=== PATIENT | female | born 1965 | race Caucasian/White ===

== ENCOUNTER 2018-12-18 08:25 | Emergency (ER) | payer BC, OTHER ==
[2018-12-18 08:47] VITALS: BP 152/94
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
[2018-12-18] MEDS ORDERED: Sodium Chloride 0.9% 1,000 ML IV ONE (09:26)
[2018-12-18 09:35] LABS: CHLORIDE,CL 103 mmol/L (101-111); SODIUM,NA 137 mmol/L (135-145)
[2018-12-18] MEDS ORDERED: Morphine 2 MG/ML Syringe IVPUSH ONE (10:14)
[2018-12-18] MEDS ORDERED: Ondansetron 4 MG/2 ML SDV IV ONE (10:14)
[2018-12-18] MEDS ORDERED: Insulin Regular, Human 100 Units/ML 3 ML Vial SUBCUT ONE (10:22)
== END 2018-12-18 10:40 | disposition left against medical advice (07) ==
LOC: DL.ED 08:25
DX: S22.080D Wedge compression fracture of T11-T12 vertebra, subsequent encounter for fracture with routine healing (principal); E78.00 Pure hypercholesterolemia, unspecified; I10 Essential (primary) hypertension; E11.9 Type 2 diabetes mellitus without complications; F17.210 Nicotine dependence, cigarettes, uncomplicated; Z88.8 Allergy status to other drugs, medicaments and biological substances; Z79.4 Long term (current) use of insulin; Z79.82 Long term (current) use of aspirin; Z79.899 Other long term (current) drug therapy; W20.8XXD Other cause of strike by thrown, projected or falling object, subsequent encounter
CPT/HCPCS: 36415; 80053; 81001; 82150; 82962; 83690; 85025; 87086; 87088; 87186; 96361; 96374; 96375; 99284; J1815; J2270; J2405; J7030

== ENCOUNTER 2019-09-01 10:55 | Inpatient (IN) | payer BC ==
[2019-09-01] MEDS ORDERED: Docusate Sodium 100 MG Cap PO PRN (11:14)
[2019-09-01] MEDS ORDERED: Albuterol 0.083% 2.5 MG/3 ML Neb Soln NEB PRN (11:14)
[2019-09-01] MEDS ORDERED: Zolpidem 5 MG Tab PO PRN (11:14)
[2019-09-01] MEDS ORDERED: Ondansetron 4 MG Tab.DIS PO PRN (11:14)
--- NOTE | 2019-09-01 11:58 | PCM.HP ---
H&P History of Present Illness - General Date of Service: 09/01/19 Admit Problem/Dx: Admission Diagnosis/Problem Admission Diagnosis/Problem Sepsis with acute pyelonephritis Source of Information: Patient History Limitations: Reports: No Limitations - History of Present Illness Initial Comments - Free Text/Narative: Patient is a 54 y.o. female with a PMH of hypertension and type 2 DM. Patient developed nausea, emesis, bilateral flank pain R>L, chills and fever 3 days ago. Symptoms have progressed and worsened today. She presented to clinic and was found to have a fever with temperature of 101.4, and tachycardia of 117. Blood pressure was soft at 107/67. Labs revealed BG 455, wbc 22.4, Cr 1.4, UA positive for UTI. Onset of Symptoms: Reports: Gradual Symptom Onset Date: 08/29/19 Associated Symptoms: Reports: Weakness - Related Data Allergies/Adverse Reactions: Allergies Allergy/AdvReac Type Severity Reaction Status Date / Time atorvastatin calcium Allergy Cannot Verified 09/01/19 11:43 [From Lipitor] Remember rosuvastatin calcium Allergy Cannot Verified 09/01/19 11:43 [From Crestor] Remember Home Medications: Home Meds Insulin Aspart [NovoLOG] 38 units SUBCUT TID 02/24/15 [History] Metoprolol Succinate [Toprol XL 50mg] 50 mg PO DAILY 02/24/15 [History] Aspirin [Ecotrin EC] 81 mg PO DAILY 04/30/17 [History] Ezetimibe 10 mg PO DAILY 04/30/17 [History] Insulin Detemir [Levemir Flextouch] 130 units SQ DAILY 04/30/17 [History] Pantoprazole [ProTONIX] 40 mg PO DAILY 04/30/17 [History] DULoxetine HCl [Cymbalta] 60 mg PO DAILY 12/18/18 [History] Pravastatin Sodium [Pravachol] 20 mg PO DAILY 09/01/19 [History] Semaglutide [Ozempic] 1 mg SUBCUT WEEKLY 09/01/19 [History] Past Medical History Cardiovascular History: Reports: High Cholesterol, Hypertension 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: Endocrine/Metabolic History: Reports: Diabetes, Type II - Past Surgical History GI Surgical History: Reports: Cholecystectomy Social & Family History - Family History Family Medical History: Noncontributory - Caffeine Use Caffeine Use: Reports: Coffee H&P Review of Systems - Review of Systems: Review Of Systems: See Below General: Reports: Fever, Chills, Malaise, Weakness HEENT: Reports: No Symptoms Pulmonary: Reports: No Symptoms Cardiovascular: Reports: No Symptoms Gastrointestinal: Reports: Nausea, Vomiting Genitourinary: Reports: Dysuria, Frequency, Flank Pain Musculoskeletal: Reports: No Symptoms, Back Pain Skin: Reports: No Symptoms Psychiatric: Reports: No Symptoms Neurological: Reports: No Symptoms Hematologic/Lymphatic: Reports: No Symptoms Immunologic: Reports: No Symptoms Exam - Exam Exam: See Below - Exam General: Alert, Oriented HEENT: PERRLA, Hearing Intact, Mucosa Moist & [place], Nares Patent, Normal Nasal Septum, Posterior Pharynx Clear, Conjunctiva Clear, EOMI, EACs Clear, TMs Clear Neck: Supple, Trachea Midline, 2 Lungs: Clear to Auscultation, Normal Respiratory Effort Cardiovascular: Regular Rate, Regular Rhythm, Normal S1, Normal S2, Tachycardia GI/Abdominal Exam: Normal Bowel Sounds, Soft, Non-Tender, No Organomegaly, No Distention, No Abnormal Bruit, No Mass, Pelvis Stable (Female) Exam: Deferred Rectal (Female) Exam: Deferred Back Exam: CVA Tenderness (R) Extremities: Normal Inspection, Normal Range of Motion, Non-Tender, No Pedal Edema, Normal Capillary Refill Skin: Warm, Dry, Intact Neurological: Cranial Nerves Intact, Reflexes Equal Bilateral Neuro Extensive - Mental Status: Alert, Oriented x3, Normal Mood/Affect, Normal Cognition Neuro Extensive - Motor, Sensory, Reflexes: CN II-XII Intact, Normal Gait, Normal Reflexes Psychiatric: Alert, Normal Affect, Normal Mood Problem List Initiated/Reviewed/Updated: Yes Orders Last 24hrs: Active Orders 24 hr Category Date Time Status Patient Status [ADT] Routine ADT 09/01/19 11:14 Active Antiembolic Devices [RC] PER UNIT ROUTINE Care 09/01/19 11:24 Active Blood Glucose Check, Bedside [RC] QIDACANDBED Care 09/01/19 11:14 Active Communication Order [RC] Per Unit Routine Care 09/01/19 11:27 Active Communication Order [RC] Per Unit Routine Care 09/01/19 11:27 Active Diabetes Education [RC] Click to Edit Care 09/01/19 11:18 Active Intake and Output [RC] QSHIFT Care 09/01/19 11:14 Active Oxygen Therapy [RC] PRN Care 09/01/19 11:14 Active RT Aerosol Therapy [RC] ASDIRECTED Care 09/01/19 11:24 Active Up ad Janae [RC] ASDIRECTED Care 09/01/19 11:14 Active VTE/DVT Education [RC] PER UNIT ROUTINE Care 09/01/19 11:14 Active Vital Signs [RC] Q4H Care 09/01/19 11:14 Active Consistent Carbohydrate Diet [DIET] Diet 09/01/19 Lunch Active Retroperitoneal Ltd [US] Routine Exams 09/01/19 11:29 Ordered BASIC METABOLIC PANEL,BMP [CHEM] Routine Lab 09/01/19 18:00 Ordered CULTURE BLOOD [BC] Stat Lab 09/01/19 11:25 Ordered CULTURE BLOOD [BC] Stat Lab 09/01/19 11:25 Ordered CULTURE URINE [RM] Stat Lab 09/01/19 11:14 Ordered MAGNESIUM [CHEM] Stat Lab 09/01/19 11:14 Ordered PHOSPHORUS [CHEM] Stat Lab 09/01/19 11:14 Ordered Acetaminophen [Tylenol] Med 09/01/19 11:14 Active 650 mg PO Q4H PRN Albuterol [Proventil Neb Soln] Med 09/01/19 11:14 Active 2.5 mg NEB Q2H PRN Docusate Sodium [Colace] Med 09/01/19 11:14 Active 100 mg PO BID PRN Heparin Sodium Med 09/01/19 14:00 Active 5,000 units SUBCUT Q8HR Ondansetron [Zofran ODT] Med 09/01/19 11:14 Active 4 mg PO Q4H PRN Sodium Chloride 0.9% [Normal Saline] 1,000 ml Med 09/01/19 11:15 Active IV ASDIRECTED Zolpidem [Ambien] Med 09/01/19 11:14 Active 5 mg PO BEDTIME PRN Antiembolic Hose [OM.PC] Per Unit Routine Oth 09/01/19 11:18 Ordered Blood Culture x2 Reflex Set [OM.PC] Stat Oth 09/01/19 11:14 Ordered Glucose Management Sub Q Reflex [OM.PC] Click To Edit Oth 09/01/19 11:14 Ordered Resuscitation Status Routine Resus Stat 09/01/19 11:14 Ordered Medication Orders Acetaminophen (Tylenol) 650 mg PO Q4H PRN PRN Reason: Pain (Mild 1-3)/fever Albuterol (Proventil Neb Soln) 2.5 mg NEB Q2H PRN PRN Reason: shortness of breath/wheezing Docusate Sodium (Colace) 100 mg PO BID PRN PRN Reason: Constipation Heparin Sodium (Porcine) (Heparin Sodium) 5,000 units SUBCUT Q8HR JAYCEE Sodium Chloride (Normal Saline) 1,000 mls @ 125 mls/hr IV ASDIRECTED JAYCEE Ondansetron HCl (Zofran Odt) 4 mg PO Q4H PRN PRN Reason: nausea, able to take PO Zolpidem Tartrate (Ambien) 5 mg PO BEDTIME PRN PRN Reason: Sleep Assessment/Plan Comment:: Sepsis Acute pyelonephritis Patient presented with bilateral flank pain, emesis, nausea, fever, chills, tachycardia, leukocytosis, positive UA. - Start Ceftriaxone daily - Obtain blood and urine cultures - IVF NS 2L bolus and the MIVF at 125 cc/h - Obtain renal US LUBNA Cr of 1.4 up from baseline of normal. Likely due to dehydration vs ATN in sepsis. - Repeat BMP in pm - IVF as above - Strict I/O Hyperglycemia DM-2 - Resume home insulin regimen - Hypoglycemia protocol - QID BG checks - Carbs consistent diet Hypertension - Hold antihypertensives for now
[2019-09-01] MEDS ORDERED: cefTRIAXone 2 GM in Sodium Chloride 0.9% 100 ML IV ONE (12:26)
[2019-09-01] MEDS: Acetaminophen 325 MG Tab PO PRN ×2 (12:27→20:53)
[2019-09-01] MEDS ORDERED: Sodium Chloride 0.9% 1,000 ML IV SCH ×2 (12:30→21:30)
[2019-09-01] MEDS: Sodium Chloride 0.9% 1,000 ML IV SCH (12:31)
[2019-09-01] MEDS: Heparin Sodium 5,000 Units/ML Vial SUBCUT SCH ×2 (13:08→22:31)
[2019-09-01] MEDS ORDERED: Ezetimibe 10 MG Tab PO SCH (13:30)
[2019-09-01] MEDS ORDERED: Pravastatin 20 MG Tab PO SCH (13:30)
[2019-09-01] MEDS ORDERED: Pantoprazole 40 MG Tab.CR PO SCH (13:30)
[2019-09-01] MEDS ORDERED: DULoxetine 30 MG Cap PO SCH (13:45)
[2019-09-01] MEDS: Morphine 2 MG/ML Syringe IVPUSH PRN ×3 (14:35→20:51)
[2019-09-01] MEDS ORDERED: Sodium Chloride 0.9% 1,000 ML IV ONE ×3 (16:46→23:30)
[2019-09-01] MEDS ORDERED: Insulin Lispro 100 Units/ML 3 ML Vial SUBCUT SCH (17:00)
[2019-09-01] MEDS: Phosphorus #1 250 MG Tab PO SCH ×2 (17:20→20:54)
[2019-09-01 18:11] LABS: ANION GAP 15.8
[2019-09-01] MEDS ORDERED: Insulin Glarg,Human.Rec.Analog 100 Unit/ML SUBCUT SCH (21:00)
[2019-09-02] MEDS ORDERED: Piperacillin/Tazobactam 3.375 GM in Sodium Chloride 0.9% 100 ML IV SCH (02:00)
[2019-09-02] MEDS: Sodium Chloride 0.9% 1,000 ML IV SCH (02:07)
[2019-09-02] MEDS: Morphine 2 MG/ML Syringe IVPUSH PRN (03:07)
[2019-09-02] MEDS ORDERED: Nicotine 14 MG/24 Hr Patch TRDERM SCH (09:00)
[2019-09-02 11:06] VITALS: BP 111/58; PULSE 114
--- NOTE | 2019-09-02 11:32 | PCM.DCSUM1 ---
Discharge Summary - Hospital Course Free Text/Narrative:: Lillian De Jesus is a 54 y.o. female with a PMH of hypertension and type 2 DM who presented with nausea, emesis, bilateral flank pain R>L, chills and fever ongoing for 3 days. He temperature was 101.4, pulse 117, blood pressure was initially 107/67, but later dropped to 86/58 even after 3L of normal saline. He labs revealed BG 455, wbc 22.4, Cr 1.2, UA positive for UTI. LA was 3.3, then 2.5. Patient was received IV Ceftriaxone, then vancomycin and zosyn. He blood stained for gram negative rods. Renal ultrasound was unremarkable. Patient was transferred to [facility] in [place], [place] for further management. Discharge diagnosis Septic shock Acute pyelonephritis LUBNA Hyperglycemia DM-2 Hypertension - Discharge Data Discharge Date: 09/02/19 Discharge Disposition: DC/Tfer to Acute Hospital 02 Condition: Fair - Referral to Home Health Primary Care Physician: Go De Jesus MD - Patient Instructions Diet: Diabetic Diet Activity: As Tolerated - Discharge Plan *PRESCRIPTION DRUG MONITORING PROGRAM REVIEWED*: Not Applicable *COPY OF PRESCRIPTION DRUG MONITORING REPORT IN PATIENT MONAE: Not Applicable Home Medications: Home Meds Insulin Aspart [NovoLOG] 38 units SUBCUT TID 02/24/15 [History] Metoprolol Succinate [Toprol XL 50mg] 50 mg PO DAILY 02/24/15 [History] Aspirin [Ecotrin EC] 81 mg PO DAILY 04/30/17 [History] Ezetimibe 10 mg PO DAILY 04/30/17 [History] Insulin Detemir [Levemir Flextouch] 130 units SQ DAILY 04/30/17 [History] Pantoprazole [ProTONIX] 40 mg PO DAILY 04/30/17 [History] DULoxetine HCl [Cymbalta] 60 mg PO DAILY 12/18/18 [History] Pravastatin Sodium [Pravachol] 20 mg PO DAILY 09/01/19 [History] Semaglutide [Ozempic] 1 mg SUBCUT WEEKLY 09/01/19 [History] Referrals: Go De Jesus MD [Primary Care Provider] - - Discharge Summary/Plan Comment DC Time >30 min.: Yes - General Info Functional Status: Reports: Pain Controlled - Review of Systems General: Reports: Fever, Weakness, Fatigue, Chills HEENT: Reports: No Symptoms Pulmonary: Reports: No Symptoms Cardiovascular: Reports: No Symptoms Gastrointestinal: Reports: Nausea, Vomiting Genitourinary: Reports: Dysuria, Frequency, Burning, Flank Pain Musculoskeletal: Reports: No Symptoms Skin: Reports: No Symptoms Neurological: Reports: No Symptoms Psychiatric: Reports: No Symptoms - Patient Data Vitals - Most Recent: Last Vital Signs Temp 97 F 09/01/19 23:00 Pulse 114 H 09/02/19 03:00 Resp 20 09/02/19 01:00 BP 111/58 L 09/02/19 03:00 Pulse Ox 92 L 09/02/19 01:00 Weight - Most Recent: 170 lb I&O - Last 24 hours: Intake & Output 09/01/19 09/02/19 09/02/19 22:59 06:59 14:59 Intake Total 1520 2175 Output Total 625 400 Balance 895 1775 Lab Results - Last 24 hrs: Laboratory Results - last 24 hr 09/01/19 09/01/19 09/01/19 Range/Units 12:30 17:02 17:40 Sodium 132 L (135-145) mmol/L Potassium 4.8 (3.6-5.0) mmol/L Chloride 98 L (101-111) mmol/L Carbon Dioxide 23.0 (21.0-31.0) mmol/L Anion Gap 15.8 BUN 22 H (7-18) mg/dL Creatinine 1.2 (0.6-1.3) mg/dL Est Cr Clr Drug Dosing 40.45 mL/min Estimated GFR (MDRD) 46 Glucose 401 H* (74-105) mg/dL POC Glucose 354 H (70-105) mg/dl Lactic Acid (0.5-2.0) mmol/L Calcium 8.6 (8.4-10.2) mg/dl Phosphorus 2.5 (2.5-4.6) mg/dL Magnesium 1.6 L (1.8-2.5) mg/dL 09/01/19 09/01/19 09/01/19 Range/Units 21:25 21:42 23:54 Sodium (135-145) mmol/L Potassium (3.6-5.0) mmol/L Chloride (101-111) mmol/L Carbon Dioxide (21.0-31.0) mmol/L Anion Gap BUN (7-18) mg/dL Creatinine (0.6-1.3) mg/dL Est Cr Clr Drug Dosing mL/min Estimated GFR (MDRD) Glucose (74-105) mg/dL POC Glucose 281 H (70-105) mg/dl Lactic Acid 3.3 H* 2.5 H* (0.5-2.0) mmol/L Calcium (8.4-10.2) mg/dl Phosphorus (2.5-4.6) mg/dL Magnesium (1.8-2.5) mg/dL DANIE Results - Last 24 hrs: Microbiology 09/01/19 12:30 Aerobic Blood Culture - Preliminary Blood - Venous Anaerobic Blood Culture - Preliminary 09/01/19 12:36 Aerobic Blood Culture - Preliminary Blood - Venous - Lab Draw Anaerobic Blood Culture - Preliminary 09/01/19 11:18 Urine Culture - Preliminary Urine, Clean Catch Med Orders - Current: Current Medications Acetaminophen (Tylenol) 650 mg PO Q4H PRN PRN Reason: Pain (Mild 1-3)/fever Last Admin: 09/01/19 20:53 Dose: 650 mg Albuterol (Proventil Neb Soln) 2.5 mg NEB Q2H PRN PRN Reason: shortness of breath/wheezing Docusate Sodium (Colace) 100 mg PO BID PRN PRN Reason: Constipation Duloxetine HCl (Cymbalta) 60 mg PO DAILY [facility] Last Admin: 09/01/19 14:35 Dose: 60 mg Ezetimibe (Zetia) 10 mg PO DAILY [facility] Last Admin: 09/01/19 14:35 Dose: 10 mg Heparin Sodium (Porcine) (Heparin Sodium) 5,000 units SUBCUT Q8HR [facility] Last Admin: 09/01/19 22:31 Dose: 5,000 units Sodium Chloride (Normal Saline) 1,000 mls @ 125 mls/hr IV ASDIRECTED [facility] Last Admin: 09/02/19 02:07 Dose: 125 mls/hr Piperacillin Sod/Tazobactam (Sod 3.375 gm/ Sodium Chloride) 100 mls @ 200 mls/ hr IV Q6H [facility] Last Admin: 09/02/19 02:39 Dose: 200 mls/hr Vancomycin HCl 1.25 gm/ Sodium (Chloride) 250 mls @ 166.667 mls/hr IV Q24H [facility] Last Admin: 09/02/19 02:50 Dose: 166.667 mls/hr Insulin Glargine (Lantus) 130 unit SUBCUT BEDTIME [facility] Last Admin: 09/01/19 22:32 Dose: 130 units Insulin Human Lispro (Humalog) 38 unit SUBCUT TIDMEALS [facility] Last Admin: 09/01/19 17:20 Dose: 38 units Miscellaneous Information (Remove Patch) 1 ea TRDERM Q24H [facility] Morphine Sulfate (Morphine) 2 mg IVPUSH Q2H PRN PRN Reason: pain Last Admin: 09/02/19 03:07 Dose: 2 mg Nicotine (Habitrol) 14 mg TRDERM DAILY [facility] Ondansetron HCl (Zofran Odt) 4 mg PO Q4H PRN PRN Reason: nausea, able to take PO Last Admin: 09/01/19 21:07 Dose: 4 mg Pantoprazole Sodium (Protonix) 40 mg PO DAILY [facility] Last Admin: 09/01/19 14:35 Dose: 40 mg Pravastatin Sodium (Pravachol) 20 mg PO DAILY [facility] Last Admin: 09/01/19 14:34 Dose: 20 mg Sodium Phosphate (Neutra-Phos) 250 mg PO QID [facility] Last Admin: 09/01/19 20:54 Dose: 250 mg Vancomycin HCl (Pharmacy To Dose - Vancomycin) 1 dose .XX ASDIRECTED [facility] Zolpidem Tartrate (Ambien) 5 mg PO BEDTIME PRN PRN Reason: Sleep Discontinued Medications Ceftriaxone Sodium 2 gm/ (Sodium Chloride) 100 mls @ 200 mls/hr IV ONETIME ONE Stop: 09/01/19 12:55 Last Infusion: 09/01/19 16:40 Dose: Infused Ceftriaxone Sodium 1 gm/ (Sodium Chloride) 50 mls @ 50 mls/hr IV Q24H [facility] Sodium Chloride (Normal Saline) 1,000 mls @ 1,000 mls/hr IV ASDIRECTED [facility] Stop: 09/01/19 13:29 Magnesium Sulfate/Dextrose 1 (gm/ Premix) 100 mls @ 100 mls/hr IV ONETIME ONE Stop: 09/01/19 14:35 Last Infusion: 09/01/19 16:41 Dose: Infused Sodium Chloride (Normal Saline) 1,000 mls @ 999 mls/hr IV .BOLUS ONE Stop: 09/01/19 17:46 Last Admin: 09/01/19 17:20 Dose: 999 mls/hr Sodium Chloride (Normal Saline) 1,000 mls @ 1,000 mls/hr IV ASDIRECTED [facility] Sodium Chloride (Normal Saline) 1,000 mls @ 1,000 mls/hr IV ONETIME ONE Stop: 09/01/19 22:44 Last Admin: 09/01/19 22:30 Dose: 1,000 mls/hr Sodium Chloride (Normal Saline) 1,000 mls @ 1,000 mls/hr IV ONETIME ONE Stop: 09/02/19 00:29 Last Admin: 09/02/19 01:00 Dose: 1,000 mls/hr - Exam General: Reports: Alert, Oriented HEENT: Reports: Pupils Equal, Pupils Reactive, EOMI, Mucous Membr. Moist/[place] Neck: Reports: Supple Lungs: Reports: Clear to Auscultation, Normal Respiratory Effort Cardiovascular: Reports: Regular Rhythm, Tachycardia GI/Abdominal Exam: Normal Bowel Sounds, Soft, Non-Tender, No Organomegaly, No Distention, No Abnormal Bruit, No Mass, Pelvis Stable (Female) Exam: Other (Bilateral flank tenderness) Rectal (Female) Exam: Deferred Back Exam: Reports: Normal Inspection, Full Range of Motion Extremities: Normal Inspection, Normal Range of Motion, Non-Tender, No Pedal Edema, Normal Capillary Refill
[2019-09-02] MEDS ORDERED: cefTRIAXone 1 GM in Sodium Chloride 0.9% 50 ML IV SCH (12:30)
== END 2019-09-02 03:10 | DRG 720 ==
LOC: DL.MS 11:14 → UNDOADMOB 11:16 → DL.MS 11:32 → INTOOBSV 11:32 → OBSVTOIN 11:32
PROVIDERS: ADMIT Internal Medicine; ATTEND Internal Medicine
DX: A41.9 Sepsis, unspecified organism (principal); R65.21 Severe sepsis with septic shock; N10 Acute pyelonephritis; N17.9 Acute kidney failure, unspecified; E11.65 Type 2 diabetes mellitus with hyperglycemia; I10 Essential (primary) hypertension; Z79.4 Long term (current) use of insulin; Z79.82 Long term (current) use of aspirin; Z79.899 Other long term (current) drug therapy
CPT/HCPCS: 36415; 76775; 80048; 82962; 83605; 83735; 84100; 87040; 87077; 87086; 87088; 87186; A9270-GY; J0696; J1644; J1815; J1815-GY; J2270; J2543; J3370; J3475; J7030; J7050

== ENCOUNTER 2020-06-12 17:51 | Inpatient (IN) | payer BC ==
[2020-06-12] MEDS ORDERED: Acetaminophen 325 MG Tab PO ONE (18:31)
[2020-06-12] MEDS ORDERED: Sodium Chloride 0.9% 1,000 ML IV ONE (19:41)
[2020-06-12] MEDS ORDERED: Ondansetron 4 MG/2 ML SDV IVPUSH ONE (19:41)
[2020-06-12 19:45] LABS: ANION GAP 10.9 mEq/L (7-13); CHLORIDE,CL 100 mmol/L (98-107); SODIUM,NA 135 mmol/L (136-145)
[2020-06-12] MEDS ORDERED: cefTRIAXone 1 GM in Sodium Chloride 0.9% 50 ML IV ONE (20:31)
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
--- NOTE | 2020-06-12 21:37 | CR ---
PROCEDURE INFORMATION: Exam: XR Chest, 1 View Exam date and time: 06/12/2020 8:55 PM Age: 54 years old Clinical indication: Other: Covid fever TECHNIQUE: Imaging protocol: XR of the chest Views: 1 view. COMPARISON: No relevant prior studies available. FINDINGS: Lungs: The lungs are normal. Pleural space: There are no pleural effusions present. Heart/Mediastinum: The heart is not enlarged. The pulmonary arteries are not enlarged. Diaphragm: There is nonspecific elevation of the right hemidiaphragm. Bones/joints: Unremarkable IMPRESSION: No acute abnormality.
[2020-06-12] MEDS ORDERED: 50% Dextrose in Water 50 ML Syringe IV PRN ×3 (21:52→22:07)
[2020-06-12] MEDS ORDERED: 50% Dextrose in Water 50 ML Syringe IVPUSH PRN (21:52)
[2020-06-12] MEDS ORDERED: Glucagon,Human Recombinant 1 MG Vial IM PRN ×3 (21:52→22:07)
[2020-06-12] MEDS ORDERED: Docusate Sodium 100 MG Cap PO PRN (21:56)
[2020-06-12] MEDS ORDERED: Sodium Chloride 0.9% 10 ML Syringe FLUSH PRN (21:56)
[2020-06-12] MEDS ORDERED: Ondansetron 4 MG Tab.DIS PO PRN (21:56)
[2020-06-12] MEDS ORDERED: Insulin Glarg,Human.Rec.Analog 100 Unit/ML SUBCUT ONE (22:07)
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
[2020-06-12] MEDS: NS + KCl 20mEq/L 1,000 ML IV SCH (22:53)
[2020-06-12] MEDS: oxyCODONE 5 MG Tab PO PRN (22:58)
[2020-06-12] MEDS: Zolpidem 5 MG Tab PO PRN (22:58)
[2020-06-13] MEDS: Acetaminophen 325 MG Tab PO PRN ×3 (00:17→16:18)
[2020-06-13] MEDS: Pantoprazole 40 MG Tab.CR PO SCH (06:02)
[2020-06-13 07:19] LABS: ANION GAP 11.3 mEq/L (7-13)
[2020-06-13] MEDS: Enoxaparin 40 MG/0.4 ML Syringe SUBCUT SCH (08:26)
[2020-06-13] MEDS: Metoprolol Succinate 50 MG Tab.ER PO SCH (08:27)
[2020-06-13] MEDS: oxyCODONE 5 MG Tab PO PRN ×3 (08:27→23:34)
[2020-06-13] MEDS: Pravastatin 20 MG Tab PO SCH (08:27)
[2020-06-13] MEDS: Ezetimibe 10 MG Tab PO SCH (08:28)
[2020-06-13] MEDS: DULoxetine 30 MG Cap PO SCH (08:29)
[2020-06-13] MEDS: Aspirin 81 MG Tab.EC PO SCH (08:29)
[2020-06-13] MEDS: NS + KCl 20mEq/L 1,000 ML IV SCH (08:30)
[2020-06-13] MEDS: Insulin Lispro 100 Units/ML 3 ML Vial SUBCUT SCH ×7 (08:35→20:56)
[2020-06-13] MEDS ORDERED: Insulin Glarg,Human.Rec.Analog 100 Unit/ML SUBCUT SCH (09:00)
--- NOTE | 2020-06-13 15:51 | PCM.PN ---
- General Info Date of Service: 06/13/20 Admission Dx/Problem (Free Text): Admission Diagnosis/Problem Admission Diagnosis/Problem UTI (urinary tract infection) Subjective Update: feeling better. Had fever that broke. Subsequently was feeling much better. Still some diffuse muscle ache. No shortness of breath, no associated cough feeling stronger. No abdominal pain. Functional Status: Reports: Pain Controlled, Tolerating Diet - Review of Systems General: Reports: Fever, Weakness Pulmonary: Denies: Shortness of Breath, Cough Cardiovascular: Denies: Chest Pain Gastrointestinal: Denies: Abdominal Pain - Patient Data Vitals - Most Recent: Last Vital Signs Temp 96.0 F L 06/13/20 12:00 Pulse 89 06/13/20 12:00 Resp 18 06/13/20 12:00 BP 112/65 06/13/20 12:00 Pulse Ox 96 06/13/20 12:00 Weight - Most Recent: 160 lb Lab Results Last 24 Hours: Laboratory Results - last 24 hr 06/12/20 06/12/20 06/12/20 Range/Units 19:06 19:18 19:18 WBC 16.8 H (5.0-10.0) 10^3/uL RBC 4.86 (4.2-5.4) 10^6/uL Hgb 14.6 D (12.0-16.0) g/dL Hct 42.4 (37.0-47.0) % MCV 87.2 (80-100) fL MCH 30.0 (27.0-34.0) pg MCHC 34.4 (33.0-35.0) g/dL Plt Count 219 D (150-450) 10^3/uL Neut % (Auto) 72.1 (42.2-75.2) % Lymph % (Auto) 14.6 L (20.5-50.1) % [place] % (Auto) 12.8 H (2-8) % Eos % (Auto) 0.3 L (1.0-3.0) % Baso % (Auto) 0.2 (0.0-1.0) % D-Dimer, Quantitative (0-400) ng/mL Sodium 135 L (136-145) mmol/L Potassium 3.9 (3.5-5.1) mmol/L Chloride 100 (98-107) mmol/L Carbon Dioxide 28 (21-32) mmol/L Anion Gap 10.9 (7-13) mEq/L BUN 13 (7-18) mg/dL Creatinine 1.03 H (0.55-1.02) mg/dL Est Cr Clr Drug Dosing 48.23 mL/min Estimated GFR (MDRD) 55 BUN/Creatinine Ratio 12.6 (No establ ref range) Glucose 305 H (74-99) mg/dL POC Glucose (70-105) mg/dl Lactic Acid (0.4-2.0) mmol/L Calcium 8.9 (8.5-10.1) mg/dL Phosphorus (2.6-4.7) mg/dL Magnesium (1.8-2.4) mg/dL Total Bilirubin 0.5 (0.2-1.0) mg/dL Direct Bilirubin (0.0-0.2) mg/dL Indirect Bilirubin AST 18 (15-37) U/L ALT 32 (14-59) U/L Alkaline Phosphatase 73 (46-116) U/L Total Protein 6.7 (6.4-8.2) g/dL Albumin 2.9 L (3.4-5.0) g/dL Globulin 3.8 Albumin/Globulin Ratio 0.76 Amylase 37 (25-115) U/L Lipase 57 L (73-393) U/L Urine Color (YELLOW) Urine Appearance (CLEAR) Urine pH (5.0-9.0) Ur Specific [place] (1.005-1.030) Urine Protein (NEGATIVE) Urine Glucose (UA) (NEGATIVE) Urine Ketones (NEGATIVE) Urine Occult Blood (NEGATIVE) Urine Nitrite (NEGATIVE) Urine Bilirubin (NEGATIVE) Urine Urobilinogen (0.2-1.0) mg/dL Ur Leukocyte Esterase (NEGATIVE) Urine RBC /HPF Urine WBC (0-5/HPF) /HPF Ur Epithelial Cells (NOT SEEN) /HPF Amorphous Sediment (NOT SEEN) /HPF Urine Bacteria (0-FEW/HPF) /HPF Urine Mucus (NOT SEEN) /LPF Ketones Negative SARS CoV-2 RNA Rapid SWETHA Positive H (NEGATIVE) 06/12/20 06/12/20 06/12/20 Range/Units 19:18 19:30 20:40 WBC (5.0-10.0) 10^3/uL RBC (4.2-5.4) 10^6/uL Hgb (12.0-16.0) g/dL Hct (37.0-47.0) % MCV (80-100) fL MCH (27.0-34.0) pg MCHC (33.0-35.0) g/dL Plt Count (150-450) 10^3/uL Neut % (Auto) (42.2-75.2) % Lymph % (Auto) (20.5-50.1) % [place] % (Auto) (2-8) % Eos % (Auto) (1.0-3.0) % Baso % (Auto) (0.0-1.0) % D-Dimer, Quantitative (0-400) ng/mL Sodium (136-145) mmol/L Potassium (3.5-5.1) mmol/L Chloride (98-107) mmol/L Carbon Dioxide (21-32) mmol/L Anion Gap (7-13) mEq/L BUN (7-18) mg/dL Creatinine (0.55-1.02) mg/dL Est Cr Clr Drug Dosing mL/min Estimated GFR (MDRD) BUN/Creatinine Ratio (No establ ref range) Glucose (74-99) mg/dL POC Glucose 237 H (70-105) mg/dl Lactic Acid 1.5 (0.4-2.0) mmol/L Calcium (8.5-10.1) mg/dL Phosphorus (2.6-4.7) mg/dL Magnesium (1.8-2.4) mg/dL Total Bilirubin (0.2-1.0) mg/dL Direct Bilirubin (0.0-0.2) mg/dL Indirect Bilirubin AST (15-37) U/L ALT (14-59) U/L Alkaline Phosphatase (46-116) U/L Total Protein (6.4-8.2) g/dL Albumin (3.4-5.0) g/dL Globulin Albumin/Globulin Ratio Amylase (25-115) U/L Lipase (73-393) U/L Urine Color Yellow (YELLOW) Urine Appearance Turbid (CLEAR) Urine pH 5.5 (5.0-9.0) Ur Specific [place] 1.025 (1.005-1.030) Urine Protein 30 H (NEGATIVE) Urine Glucose (UA) 500 H (NEGATIVE) Urine Ketones Negative (NEGATIVE) Urine Occult Blood Trace-intact H (NEGATIVE) Urine Nitrite Positive H (NEGATIVE) Urine Bilirubin Negative (NEGATIVE) Urine Urobilinogen 0.2 (0.2-1.0) mg/dL Ur Leukocyte Esterase Small H (NEGATIVE) Urine RBC 10-20 H /HPF Urine WBC 40-50 H (0-5/HPF) /HPF Ur Epithelial Cells Few (NOT SEEN) /HPF Amorphous Sediment Few (NOT SEEN) /HPF Urine Bacteria Many H (0-FEW/HPF) /HPF Urine Mucus Rare (NOT SEEN) /LPF Ketones SARS CoV-2 RNA Rapid SWETHA (NEGATIVE) 06/12/20 06/13/20 06/13/20 Range/Units 22:47 06:29 06:29 WBC (5.0-10.0) 10^3/uL RBC (4.2-5.4) 10^6/uL Hgb (12.0-16.0) g/dL Hct (37.0-47.0) % MCV (80-100) fL MCH (27.0-34.0) pg MCHC (33.0-35.0) g/dL Plt Count (150-450) 10^3/uL Neut % (Auto) (42.2-75.2) % Lymph % (Auto) (20.5-50.1) % [place] % (Auto) (2-8) % Eos % (Auto) (1.0-3.0) % Baso % (Auto) (0.0-1.0) % D-Dimer, Quantitative 266 (0-400) ng/mL Sodium 137 (136-145) mmol/L Potassium 4.3 (3.5-5.1) mmol/L Chloride 103 (98-107) mmol/L Carbon Dioxide 27 (21-32) mmol/L Anion Gap 11.3 (7-13) mEq/L BUN 11 (7-18) mg/dL Creatinine 1.04 H (0.55-1.02) mg/dL Est Cr Clr Drug Dosing 47.77 mL/min Estimated GFR (MDRD) 55 BUN/Creatinine Ratio (No establ ref range) Glucose 279 H (74-99) mg/dL POC Glucose 218 H (70-105) mg/dl Lactic Acid (0.4-2.0) mmol/L Calcium 8.3 L (8.5-10.1) mg/dL Phosphorus 1.8 L (2.6-4.7) mg/dL Magnesium 1.7 L (1.8-2.4) mg/dL Total Bilirubin 0.3 (0.2-1.0) mg/dL Direct Bilirubin 0.1 (0.0-0.2) mg/dL Indirect Bilirubin 0.2 AST 15 (15-37) U/L ALT 25 (14-59) U/L Alkaline Phosphatase 59 (46-116) U/L Total Protein 5.8 L (6.4-8.2) g/dL Albumin 2.4 L (3.4-5.0) g/dL Globulin 3.4 Albumin/Globulin Ratio 0.71 Amylase (25-115) U/L Lipase (73-393) U/L Urine Color (YELLOW) Urine Appearance (CLEAR) Urine pH (5.0-9.0) Ur Specific [place] (1.005-1.030) Urine Protein (NEGATIVE) Urine Glucose (UA) (NEGATIVE) Urine Ketones (NEGATIVE) Urine Occult Blood (NEGATIVE) Urine Nitrite (NEGATIVE) Urine Bilirubin (NEGATIVE) Urine Urobilinogen (0.2-1.0) mg/dL Ur Leukocyte Esterase (NEGATIVE) Urine RBC /HPF Urine WBC (0-5/HPF) /HPF Ur Epithelial Cells (NOT SEEN) /HPF Amorphous Sediment (NOT SEEN) /HPF Urine Bacteria (0-FEW/HPF) /HPF Urine Mucus (NOT SEEN) /LPF Ketones SARS CoV-2 RNA Rapid SWETHA (NEGATIVE) 06/13/20 06/13/20 06/13/20 Range/Units 06:29 08:21 12:02 WBC 13.4 H (5.0-10.0) 10^3/uL RBC 4.23 (4.2-5.4) 10^6/uL Hgb 12.7 D (12.0-16.0) g/dL Hct 37.9 (37.0-47.0) % MCV 89.6 (80-100) fL MCH 30.0 (27.0-34.0) pg MCHC 33.5 (33.0-35.0) g/dL Plt Count 200 (150-450) 10^3/uL Neut % (Auto) 57.9 (42.2-75.2) % Lymph % (Auto) 26.2 (20.5-50.1) % [place] % (Auto) 15.4 H (2-8) % Eos % (Auto) 0.3 L (1.0-3.0) % Baso % (Auto) 0.2 (0.0-1.0) % D-Dimer, Quantitative (0-400) ng/mL Sodium (136-145) mmol/L Potassium (3.5-5.1) mmol/L Chloride (98-107) mmol/L Carbon Dioxide (21-32) mmol/L Anion Gap (7-13) mEq/L BUN (7-18) mg/dL Creatinine (0.55-1.02) mg/dL Est Cr Clr Drug Dosing mL/min Estimated GFR (MDRD) BUN/Creatinine Ratio (No establ ref range) Glucose (74-99) mg/dL POC Glucose 255 H 161 H (70-105) mg/dl Lactic Acid (0.4-2.0) mmol/L Calcium (8.5-10.1) mg/dL Phosphorus (2.6-4.7) mg/dL Magnesium (1.8-2.4) mg/dL Total Bilirubin (0.2-1.0) mg/dL Direct Bilirubin (0.0-0.2) mg/dL Indirect Bilirubin AST (15-37) U/L ALT (14-59) U/L Alkaline Phosphatase (46-116) U/L Total Protein (6.4-8.2) g/dL Albumin (3.4-5.0) g/dL Globulin Albumin/Globulin Ratio Amylase (25-115) U/L Lipase (73-393) U/L Urine Color (YELLOW) Urine Appearance (CLEAR) Urine pH (5.0-9.0) Ur Specific [place] (1.005-1.030) Urine Protein (NEGATIVE) Urine Glucose (UA) (NEGATIVE) Urine Ketones (NEGATIVE) Urine Occult Blood (NEGATIVE) Urine Nitrite (NEGATIVE) Urine Bilirubin (NEGATIVE) Urine Urobilinogen (0.2-1.0) mg/dL Ur Leukocyte Esterase (NEGATIVE) Urine RBC /HPF Urine WBC (0-5/HPF) /HPF Ur Epithelial Cells (NOT SEEN) /HPF Amorphous Sediment (NOT SEEN) /HPF Urine Bacteria (0-FEW/HPF) /HPF Urine Mucus (NOT SEEN) /LPF Ketones SARS CoV-2 RNA Rapid SWETHA (NEGATIVE) Wood Results Last 24 Hours: Microbiology 06/12/20 19:30 Urine Culture - Preliminary Urine, Clean Catch 06/12/20 19:06 Influenza Type A Antigen Screen - Final Nasal, Unspecified NEGATIVE INFLUENZA A VIRUS AG REFERENCE RANGE: NEGATIVE Influenza Type B Antigen Screen - Final Positive Influenza B Ag Med Orders - Current: Current Medications Acetaminophen (Tylenol) 650 mg PO Q4H PRN PRN Reason: Fever Last Admin: 06/13/20 08:29 Dose: 650 mg Documented by: Aspirin (Halfprin) 81 mg PO DAILY [facility] Last Admin: 06/13/20 08:29 Dose: 81 mg Documented by: Dextrose/Water (Dextrose 50% In Water) 25 ml IVPUSH Q1H PRN PRN Reason: blood sugar <70 Dextrose/Water (Dextrose 50% In Water) 50 ml IV ASDIRECTED PRN PRN Reason: Hypoglycemia Docusate Sodium (Colace) 100 mg PO BID PRN PRN Reason: Constipation Duloxetine HCl (Cymbalta) 60 mg PO DAILY [facility] Last Admin: 06/13/20 08:29 Dose: 60 mg Documented by: Ezetimibe (Zetia) 10 mg PO DAILY [facility] Last Admin: 06/13/20 08:28 Dose: 10 mg Documented by: Enoxaparin Sodium (Lovenox) 40 mg SUBCUT DAILY [facility] Last Admin: 06/13/20 08:26 Dose: 40 mg Documented by: Glucagon (Glucagen) 1 mg IM ASDIRECTED PRN PRN Reason: Hypoglycemia Potassium Chloride/Sodium Chloride (Normal Saline With 20 Meq Kcl) 1,000 mls @ 100 mls/hr IV ASDIRECTED [facility] Last Admin: 06/13/20 08:30 Dose: 100 mls/hr Documented by: Insulin Glargine (Lantus) 80 unit SUBCUT BEDTIME [facility] Insulin Human Lispro (Humalog) 0 unit SUBCUT QIDACANDBED [facility]; Protocol Last Admin: 06/13/20 12:08 Dose: 1 units Documented by: Insulin Human Lispro (Humalog) 20 unit SUBCUT TIDMEALS [facility] Last Admin: 06/13/20 12:07 Dose: 20 units Documented by: Magnesium Oxide (Magnesium Oxide) 500 mg PO QID [facility] Stop: 06/13/20 21:01 Metoprolol Succinate (Toprol Xl) 50 mg PO DAILY [facility] Last Admin: 06/13/20 08:27 Dose: 50 mg Documented by: Ondansetron HCl (Zofran Odt) 4 mg PO Q6H PRN PRN Reason: nausea, able to take PO Oxycodone HCl (Oxycodone) 5 mg PO Q4H PRN PRN Reason: Pain mod to severe Last Admin: 06/13/20 08:27 Dose: 5 mg Documented by: Pantoprazole Sodium (Protonix) 40 mg PO ACBREAKFAST [facility] Last Admin: 06/13/20 06:02 Dose: 40 mg Documented by: Pravastatin Sodium (Pravachol) 20 mg PO DAILY [facility] Last Admin: 06/13/20 08:27 Dose: 20 mg Documented by: Sodium Chloride (Saline Flush) 10 ml FLUSH ASDIRECTED PRN PRN Reason: Keep Vein Open Sodium Phosphate (Neutra-Phos) 250 mg PO QID [facility] Stop: 06/13/20 21:01 Zolpidem Tartrate (Ambien) 5 mg PO BEDTIME PRN PRN Reason: Sleep Last Admin: 06/12/20 22:58 Dose: 5 mg Documented by: Discontinued Medications Acetaminophen (Tylenol) 650 mg PO NOW ONE Stop: 06/12/20 18:32 Last Admin: 06/12/20 18:36 Dose: 650 mg Documented by: Dextrose/Water (Dextrose 50% In Water) 50 ml IV ASDIRECTED PRN PRN Reason: Hypoglycemia Dextrose/Water (Dextrose 50% In Water) 50 ml IV ASDIRECTED PRN PRN Reason: Hypoglycemia Glucagon (Glucagen) 1 mg IM ASDIRECTED PRN PRN Reason: Hypoglycemia Glucagon (Glucagen) 1 mg IM ASDIRECTED PRN PRN Reason: Hypoglycemia Sodium Chloride (Normal Saline) 1,000 mls @ 999 mls/hr IV .BOLUS ONE Stop: 06/12/20 20:41 Last Admin: 06/12/20 19:48 Dose: 999 mls/hr Documented by: Ceftriaxone Sodium 1 gm/ (Sodium Chloride) 50 mls @ 100 mls/hr IV ONETIME ONE Stop: 06/12/20 21:00 Last Admin: 06/12/20 20:40 Dose: 100 mls/hr Documented by: Insulin Glargine (Lantus) 80 unit SUBCUT DAILY [facility] Insulin Glargine (Lantus) 40 unit SUBCUT ONETIME ONE Stop: 06/12/20 22:08 Last Admin: 06/12/20 22:55 Dose: 40 units Documented by: Ondansetron HCl (Zofran) 4 mg IVPUSH ONETIME ONE Stop: 06/12/20 19:42 Last Admin: 06/12/20 19:49 Dose: 4 mg Documented by: - Exam General: Alert, Oriented Neck: Supple Lungs: Normal Respiratory Effort, Decreased Breath Sounds Cardiovascular: Regular Rate, Regular Rhythm GI/Abdominal Exam: Normal Bowel Sounds, Soft, Non-Tender Extremities: No Pedal Edema Sepsis Event Note - Evaluation Sepsis Screening Result: Possible Sepsis Risk - Focused Exam Vital Signs: Vital Signs Temp Pulse Pulse Resp BP BP Pulse Ox 06/13/20 12:00 96.0 F L 89 18 112/65 96 06/13/20 09:00 97.7 F 06/13/20 08:27 106 H 120/72 06/13/20 08:00 100.1 F 82 18 123/68 94 L 06/13/20 04:00 97.9 F 90 18 126/56 L 95 - Problem List & Annotations (1) COVID-19 SNOMED Code(s): 657461126 Code(s): U07.1 - COVID-19 Status: Acute Current Visit: Yes (2) IDDM (insulin dependent diabetes mellitus) SNOMED Code(s): 16637399 Code(s): XCR2678 - Status: Acute Current Visit: Yes (3) Influenza SNOMED Code(s): 9904883 Code(s): J11.1 - FLU DUE TO UNIDENTIFIED INFLUENZA VIRUS W OTH RESP MANIFEST Status: Acute Current Visit: Yes (4) UTI (urinary tract infection) SNOMED Code(s): 53612159 Code(s): N39.0 - URINARY TRACT INFECTION, SITE NOT SPECIFIED Status: Acute Current Visit: Yes Qualifiers: Urinary tract infection type: acute cystitis Hematuria presence: without hematuria Qualified Code(s): N30.00 - Acute cystitis without hematuria - Problem List Review Problem List Initiated/Reviewed/Updated: Yes - My Orders Last 24 Hours: My Active Orders 06/12/20 21:51 Glucose [Blood Glucose Check, Bedside] [RC] QIDACANDBED 06/12/20 21:52 Dextrose 50% in Water 25 ml IVPUSH Q1H PRN 06/12/20 21:56 Up With Assistance [RC] ASDIRECTED Docusate Sodium [Colace] 100 mg PO BID PRN Ondansetron [Zofran ODT] 4 mg PO Q6H PRN Sodium Chloride 0.9% [Saline Flush] 10 ml FLUSH ASDIRECTED PRN Zolpidem [Ambien] 5 mg PO BEDTIME PRN oxyCODONE 5 mg PO Q4H PRN Peripheral IV Insertion Adult [OM.PC] Routine Saline Lock Insert [OM.PC] Routine Resuscitation Status Routine 06/12/20 21:57 Oxygen Therapy [RC] .PRN VTE/DVT Education [RC] PER UNIT ROUTINE Vital Signs [RC] Q4H Antiembolic Hose [OM.PC] Per Unit Routine 06/12/20 21:58 Antiembolic Devices [RC] PER UNIT ROUTINE Peripheral IV Care [RC] . DIRECTED 06/12/20 22:07 Dextrose 50% in Water 50 ml IV ASDIRECTED PRN Glucagon,Human Recombinant [GlucaGen] 1 mg IM ASDIRECTED PRN 06/12/20 22:15 NS + KCl 20mEq/L [Normal Saline with 20 mEq KCl] 1,000 ml IV ASDIRECTED 06/12/20 23:33 Acetaminophen [TylenoL] 650 mg PO Q4H PRN 06/13/20 06:00 Pantoprazole [ProTONIX] 40 mg PO ACBREAKFAST 06/13/20 06:29 PROCALCITONIN [REF] DAILY 06/13/20 07:00 Insulin Lispro [HumaLOG] See Protocol SUBCUT QIDACANDBED 06/13/20 08:00 Insulin Lispro [HumaLOG] 20 unit SUBCUT TIDMEALS 06/13/20 09:00 Aspirin [Halfprin] 81 mg PO DAILY DULoxetine [Cymbalta] 60 mg PO DAILY Enoxaparin [Lovenox] 40 mg SUBCUT DAILY Ezetimibe [Zetia] 10 mg PO DAILY Metoprolol Succinate [Toprol XL] 50 mg PO DAILY Pravastatin [Pravachol] 20 mg PO DAILY 06/13/20 17:00 Magnesium Oxide 500 mg PO QID Phosphorus #1 [Neutra-Phos] 250 mg PO QID 06/13/20 21:00 Insulin Glarg,Human.Rec.Analog [LantUS] 80 unit SUBCUT BEDTIME 06/14/20 05:00 PROCALCITONIN [REF] DAILY 06/14/20 05:11 DD [D-DIMER QUANTITATIVE] [COAG] AM 06/14/20 05:15 CBC WITH AUTO DIFF [HEME] AM INR,PT,PROTHROMBIN TIME [COAG] AM 06/15/20 05:11 DD [D-DIMER QUANTITATIVE] [COAG] AM 06/16/20 05:11 DD [D-DIMER QUANTITATIVE] [COAG] AM - Plan Plan:: 54-year-old lady with a history of diabetes, frequent urinary tract infection presented malaise, diffuse muscle aches. Noted to have UTI, tested positive for Covid and influenza type B. Urinary tract infection with leukocytosis pending urine culture Started empirical treatment with ceftriaxone Diabetes uncontrolled high blood sugar Follow blood sugars Continue Lantus daily and NovoLog with meals adjust as needed Use supplemental insulin and hypoglycemia treatment as needed Tested positive for Covid as well as influenza type B no respiratory symptoms but have generalized malaise and body ache Respiratory isolation Check pro-calcitonin level fairly low d-dimer negative cxr Hold dex/rem/plasma for now stop IVFluids Hyponatremia Mild we will follow Hypertension Continue metoprolol DVT prophylaxis with Lovenox
[2020-06-13] MEDS: Phosphorus #1 250 MG Tab PO SCH ×2 (17:38→21:00)
[2020-06-13] MEDS: Insulin Glarg,Human.Rec.Analog 100 Unit/ML SUBCUT SCH (20:56)
[2020-06-13] MEDS: Zolpidem 5 MG Tab PO PRN (23:34)
[2020-06-14] MEDS: Pantoprazole 40 MG Tab.CR PO SCH (05:41)
[2020-06-14] MEDS: Enoxaparin 40 MG/0.4 ML Syringe SUBCUT SCH ×2 (09:02→21:34)
[2020-06-14] MEDS: DULoxetine 30 MG Cap PO SCH (09:03)
[2020-06-14] MEDS: Pravastatin 20 MG Tab PO SCH (09:03)
[2020-06-14] MEDS: Metoprolol Succinate 50 MG Tab.ER PO SCH (09:03)
[2020-06-14] MEDS: Ezetimibe 10 MG Tab PO SCH (09:03)
[2020-06-14] MEDS: Aspirin 81 MG Tab.EC PO SCH (09:03)
[2020-06-14] MEDS: oxyCODONE 5 MG Tab PO PRN ×2 (09:04→21:33)
[2020-06-14] MEDS: Insulin Lispro 100 Units/ML 3 ML Vial SUBCUT SCH ×7 (09:05→21:37)
--- NOTE | 2020-06-14 13:05 | PCM.PN ---
- General Info Date of Service: 06/14/20 Admission Dx/Problem (Free Text): Admission Diagnosis/Problem Admission Diagnosis/Problem UTI (urinary tract infection) Subjective Update: feeling better. but still weak especially when he has to get out of bed. Feels lightheaded and dizzy when moving. Still some diffuse muscle ache. No shortness of breath, no associated cough No abdominal pain. Functional Status: Reports: Pain Controlled, Tolerating Diet - Review of Systems General: Reports: Weakness. Denies: Fever Pulmonary: Denies: Shortness of Breath, Cough, Sputum Cardiovascular: Denies: Chest Pain Genitourinary: Denies: Dysuria Neurological: Denies: Confusion - Patient Data Vitals - Most Recent: Last Vital Signs Temp 97.9 F 06/14/20 12:00 Pulse 89 06/14/20 12:00 Resp 18 06/14/20 12:00 BP 97/84 06/14/20 12:00 Pulse Ox 96 06/14/20 12:00 Weight - Most Recent: 160 lb I&O - Last 24 Hours: Intake & Output 06/13/20 06/14/20 06/14/20 22:59 06:59 14:59 Intake Total 240 Balance 240 Lab Results Last 24 Hours: Laboratory Results - last 24 hr 06/13/20 06/13/20 06/13/20 Range/Units 06:29 16:17 20:53 WBC (5.0-10.0) 10^3/uL RBC (4.2-5.4) 10^6/uL Hgb (12.0-16.0) g/dL Hct (37.0-47.0) % MCV (80-100) fL MCH (27.0-34.0) pg MCHC (33.0-35.0) g/dL Plt Count (150-450) 10^3/uL Neut % (Auto) (42.2-75.2) % Lymph % (Auto) (20.5-50.1) % [place] % (Auto) (2-8) % Eos % (Auto) (1.0-3.0) % Baso % (Auto) (0.0-1.0) % PT (9.0-12.0) SEC INR (0.9-1.2) D-Dimer, Quantitative (0-400) ng/mL POC Glucose 138 H 94 (70-105) mg/dl Procalcitonin 1.06 H (<0.10) ng/mL 06/14/20 06/14/20 06/14/20 Range/Units 06:10 06:10 06:10 WBC 11.0 H (5.0-10.0) 10^3/uL RBC 4.06 L (4.2-5.4) 10^6/uL Hgb 12.1 (12.0-16.0) g/dL Hct 36.2 L (37.0-47.0) % MCV 89.2 (80-100) fL MCH 29.8 (27.0-34.0) pg MCHC 33.4 (33.0-35.0) g/dL Plt Count 220 (150-450) 10^3/uL Neut % (Auto) 50.7 (42.2-75.2) % Lymph % (Auto) 33.8 (20.5-50.1) % [place] % (Auto) 13.7 H (2-8) % Eos % (Auto) 1.5 (1.0-3.0) % Baso % (Auto) 0.3 (0.0-1.0) % PT 9.9 (9.0-12.0) SEC INR 1.0 (0.9-1.2) D-Dimer, Quantitative 487 H (0-400) ng/mL POC Glucose (70-105) mg/dl Procalcitonin (<0.10) ng/mL 06/14/20 06/14/20 Range/Units 08:22 12:24 WBC (5.0-10.0) 10^3/uL RBC (4.2-5.4) 10^6/uL Hgb (12.0-16.0) g/dL Hct (37.0-47.0) % MCV (80-100) fL MCH (27.0-34.0) pg MCHC (33.0-35.0) g/dL Plt Count (150-450) 10^3/uL Neut % (Auto) (42.2-75.2) % Lymph % (Auto) (20.5-50.1) % [place] % (Auto) (2-8) % Eos % (Auto) (1.0-3.0) % Baso % (Auto) (0.0-1.0) % PT (9.0-12.0) SEC INR (0.9-1.2) D-Dimer, Quantitative (0-400) ng/mL POC Glucose 95 107 H (70-105) mg/dl Procalcitonin (<0.10) ng/mL [place] Results Last 24 Hours: Microbiology 06/12/20 19:30 Urine Culture - Preliminary Urine, Clean Catch 06/12/20 19:15 Aerobic Blood Culture - Preliminary Blood - Arm, Left NO GROWTH AFTER 1 DAY Anaerobic Blood Culture - Preliminary NO GROWTH AFTER 1 DAY 06/12/20 19:18 Aerobic Blood Culture - Preliminary Blood - Arm, Right NO GROWTH AFTER 1 DAY Anaerobic Blood Culture - Preliminary NO GROWTH AFTER 1 DAY Med Orders - Current: Current Medications Acetaminophen (Tylenol) 650 mg PO Q4H PRN PRN Reason: Fever Last Admin: 06/13/20 16:18 Dose: 650 mg Documented by: Aspirin (Halfprin) 81 mg PO DAILY [facility] Last Admin: 06/14/20 09:03 Dose: 81 mg Documented by: Dextrose/Water (Dextrose 50% In Water) 25 ml IVPUSH Q1H PRN PRN Reason: blood sugar <70 Dextrose/Water (Dextrose 50% In Water) 50 ml IV ASDIRECTED PRN PRN Reason: Hypoglycemia Docusate Sodium (Colace) 100 mg PO BID PRN PRN Reason: Constipation Duloxetine HCl (Cymbalta) 60 mg PO DAILY [facility] Last Admin: 06/14/20 09:03 Dose: 60 mg Documented by: Ezetimibe (Zetia) 10 mg PO DAILY [facility] Last Admin: 06/14/20 09:03 Dose: 10 mg Documented by: Enoxaparin Sodium (Lovenox) 40 mg SUBCUT BID [facility] Glucagon (Glucagen) 1 mg IM ASDIRECTED PRN PRN Reason: Hypoglycemia Ceftriaxone Sodium 1 gm/ (Sodium Chloride) 50 mls @ 100 mls/hr IV Q24H [facility] Insulin Glargine (Lantus) 80 unit SUBCUT BEDTIME [facility] Last Admin: 06/13/20 20:56 Dose: 70 units Documented by: Insulin Human Lispro (Humalog) 0 unit SUBCUT QIDACANDBED [facility]; Protocol Last Admin: 06/14/20 12:29 Dose: Not Given Documented by: Insulin Human Lispro (Humalog) 20 unit SUBCUT TIDMEALS [facility] Last Admin: 06/14/20 12:27 Dose: 20 units Documented by: Metoprolol Succinate (Toprol Xl) 50 mg PO DAILY [facility] Last Admin: 06/14/20 09:03 Dose: 50 mg Documented by: Ondansetron HCl (Zofran Odt) 4 mg PO Q6H PRN PRN Reason: nausea, able to take PO Oxycodone HCl (Oxycodone) 5 mg PO Q4H PRN PRN Reason: Pain mod to severe Last Admin: 06/14/20 09:04 Dose: 5 mg Documented by: Pantoprazole Sodium (Protonix) 40 mg PO ACBREAKFAST [facility] Last Admin: 06/14/20 05:41 Dose: 40 mg Documented by: Pravastatin Sodium (Pravachol) 20 mg PO DAILY [facility] Last Admin: 06/14/20 09:03 Dose: 20 mg Documented by: Sodium Chloride (Saline Flush) 10 ml FLUSH ASDIRECTED PRN PRN Reason: Keep Vein Open Zolpidem Tartrate (Ambien) 5 mg PO BEDTIME PRN PRN Reason: Sleep Last Admin: 06/13/20 23:34 Dose: 5 mg Documented by: Discontinued Medications Acetaminophen (Tylenol) 650 mg PO NOW ONE Stop: 06/12/20 18:32 Last Admin: 06/12/20 18:36 Dose: 650 mg Documented by: Dextrose/Water (Dextrose 50% In Water) 50 ml IV ASDIRECTED PRN PRN Reason: Hypoglycemia Dextrose/Water (Dextrose 50% In Water) 50 ml IV ASDIRECTED PRN PRN Reason: Hypoglycemia Enoxaparin Sodium (Lovenox) 40 mg SUBCUT DAILY [facility] Last Admin: 06/14/20 09:02 Dose: 40 mg Documented by: Glucagon (Glucagen) 1 mg IM ASDIRECTED PRN PRN Reason: Hypoglycemia Glucagon (Glucagen) 1 mg IM ASDIRECTED PRN PRN Reason: Hypoglycemia Sodium Chloride (Normal Saline) 1,000 mls @ 999 mls/hr IV .BOLUS ONE Stop: 06/12/20 20:41 Last Admin: 06/12/20 19:48 Dose: 999 mls/hr Documented by: Ceftriaxone Sodium 1 gm/ (Sodium Chloride) 50 mls @ 100 mls/hr IV ONETIME ONE Stop: 06/12/20 21:00 Last Admin: 06/12/20 20:40 Dose: 100 mls/hr Documented by: Potassium Chloride/Sodium Chloride (Normal Saline With 20 Meq Kcl) 1,000 mls @ 100 mls/hr IV ASDIRECTED [facility] Last Admin: 06/13/20 08:30 Dose: 100 mls/hr Documented by: Insulin Glargine (Lantus) 80 unit SUBCUT DAILY [facility] Insulin Glargine (Lantus) 40 unit SUBCUT ONETIME ONE Stop: 06/12/20 22:08 Last Admin: 06/12/20 22:55 Dose: 40 units Documented by: Magnesium Oxide (Magnesium Oxide) 500 mg PO QID [facility] Stop: 06/13/20 21:01 Last Admin: 06/13/20 21:01 Dose: 500 mg Documented by: Ondansetron HCl (Zofran) 4 mg IVPUSH ONETIME ONE Stop: 06/12/20 19:42 Last Admin: 06/12/20 19:49 Dose: 4 mg Documented by: Sodium Phosphate (Neutra-Phos) 250 mg PO QID [facility] Stop: 06/13/20 21:01 Last Admin: 06/13/20 21:00 Dose: 250 mg Documented by: - Exam Quality Assessment: No: Supplemental Oxygen General: Alert, Oriented Neck: Supple Lungs: Clear to Auscultation, Normal Respiratory Effort Cardiovascular: Regular Rate, Regular Rhythm GI/Abdominal Exam: Normal Bowel Sounds, Soft, Non-Tender Extremities: No Pedal Edema Sepsis Event Note - Evaluation Sepsis Screening Result: No Definite Risk - Focused Exam Vital Signs: Vital Signs Temp Pulse Pulse Resp BP BP BP 06/14/20 12:00 97.9 F 89 18 97/84 06/14/20 09:03 91 128/67 06/14/20 08:00 97.8 F 91 18 129/67 06/14/20 05:44 99.1 F 87 20 121/76 Pulse Ox 06/14/20 12:00 96 06/14/20 09:03 06/14/20 08:00 97 06/14/20 05:44 94 L - Problem List & Annotations (1) COVID-19 SNOMED Code(s): 220701520 Code(s): U07.1 - COVID-19 Status: Acute Current Visit: Yes (2) IDDM (insulin dependent diabetes mellitus) SNOMED Code(s): 61749546 Code(s): YAK0374 - Status: Acute Current Visit: Yes (3) Influenza SNOMED Code(s): 2368091 Code(s): J11.1 - FLU DUE TO UNIDENTIFIED INFLUENZA VIRUS W OTH RESP MANIFEST Status: Acute Current Visit: Yes (4) UTI (urinary tract infection) SNOMED Code(s): 24824439 Code(s): N39.0 - URINARY TRACT INFECTION, SITE NOT SPECIFIED Status: Acute Current Visit: Yes Qualifiers: Urinary tract infection type: acute cystitis Hematuria presence: without hematuria Qualified Code(s): N30.00 - Acute cystitis without hematuria - Problem List Review Problem List Initiated/Reviewed/Updated: Yes - My Orders Last 24 Hours: My Active Orders 06/13/20 21:00 Insulin Glarg,Human.Rec.Analog [LantUS] 80 unit SUBCUT BEDTIME 06/14/20 06:10 PROCALCITONIN [REF] DAILY 06/14/20 13:00 cefTRIAXone [Rocephin] 1 gm Sodium Chloride 0.9% [Normal Saline] 50 ml IV Q24H 06/14/20 21:00 Enoxaparin [Lovenox] 40 mg SUBCUT BID 06/15/20 05:11 DD [D-DIMER QUANTITATIVE] [COAG] AM 06/16/20 05:11 BASIC METABOLIC PANEL,BMP [CHEM] AM CBC WITH AUTO DIFF [HEME] AM DD [D-DIMER QUANTITATIVE] [COAG] AM 06/17/20 05:11 BASIC METABOLIC PANEL,BMP [CHEM] AM CBC WITH AUTO DIFF [HEME] AM 06/18/20 05:11 BASIC METABOLIC PANEL,BMP [CHEM] AM CBC WITH AUTO DIFF [HEME] AM 06/19/20 05:11 BASIC METABOLIC PANEL,BMP [CHEM] AM CBC WITH AUTO DIFF [HEME] AM 06/20/20 05:11 BASIC METABOLIC PANEL,BMP [CHEM] AM CBC WITH AUTO DIFF [HEME] AM - Plan Plan:: 54-year-old lady with a history of diabetes, frequent urinary tract infection presented malaise, diffuse muscle aches. Noted to have UTI, tested positive for Covid and influenza type B. Urinary tract infection with leukocytosis urine culture: gram neg rods Started empirical treatment with ceftriaxone Diabetes uncontrolled high blood sugar initially now well controlled Follow blood sugars Continue Lantus daily and NovoLog with meals adjust as needed Use supplemental insulin and hypoglycemia treatment as needed Tested positive for Covid as well as influenza type B no respiratory symptoms but have generalized malaise and body ache Respiratory isolation elevated pro-calcitonin level - might relate to urinary tract infection - continue ceftriaxone fairly low d-dimer negative cxr Hold dex/rem/plasma for now Hyponatremia Mild we will follow Hypertension Continue metoprolol DVT prophylaxis with Lovenox
[2020-06-14] MEDS: cefTRIAXone 1 GM in Sodium Chloride 0.9% 50 ML IV SCH (13:53)
[2020-06-14] MEDS: Insulin Glarg,Human.Rec.Analog 100 Unit/ML SUBCUT SCH (21:39)
[2020-06-14] MEDS: Zolpidem 5 MG Tab PO PRN (21:50)
[2020-06-14] MEDS: Acetaminophen 325 MG Tab PO PRN (21:50)
[2020-06-15] MEDS: Pantoprazole 40 MG Tab.CR PO SCH (05:27)
[2020-06-15 07:17] LABS: ANION GAP 8.4 mEq/L (7-13); CHLORIDE,CL 103 mmol/L (98-107); SODIUM,NA 139 mmol/L (136-145)
[2020-06-15] MEDS: Insulin Lispro 100 Units/ML 3 ML Vial SUBCUT SCH ×4 (08:32→12:06)
[2020-06-15] MEDS: Pravastatin 20 MG Tab PO SCH (09:00)
[2020-06-15] MEDS: Metoprolol Succinate 50 MG Tab.ER PO SCH (09:00)
[2020-06-15] MEDS: Ezetimibe 10 MG Tab PO SCH (09:00)
[2020-06-15] MEDS: Enoxaparin 40 MG/0.4 ML Syringe SUBCUT SCH (09:01)
[2020-06-15] MEDS: Aspirin 81 MG Tab.EC PO SCH (09:01)
[2020-06-15] MEDS: DULoxetine 30 MG Cap PO SCH (09:01)
[2020-06-15 09:02] VITALS: BP 136/67; PULSE 74
[2020-06-15] MEDS: cefTRIAXone 1 GM in Sodium Chloride 0.9% 50 ML IV SCH (12:04)
--- NOTE | 2020-06-15 13:04 | PCM.DCSUM1 ---
Discharge Summary - Hospital Course Free Text/Narrative:: 54-year-old lady with a history of diabetes, frequent urinary tract infection presented malaise, diffuse muscle aches. Noted to have UTI, tested positive for Covid and influenza type B. Urinary tract infection with leukocytosis urine culture: ecoli Started empirical treatment with ceftriaxone finish tx with keflex Diabetes uncontrolled high blood sugar initially now well controlled Continue Lantus daily and NovoLog with meals Tested positive for Covid as well as influenza type B no respiratory symptoms but had generalized malaise and body ache Respiratory isolation mildly elevated pro-calcitonin level - might relate to urinary tract infection - treated with ceftriaxone - continue with keflex fairly low d-dimer negative cxr not hypoxemic did not treat with dex/rem/plasma Hypertension Continue metoprolol HPI Initial Comments: 54-year-old lady with a history of diabetes, frequent urinary tract infection presented malaise, diffuse muscle aches. Noted to have UTI, tested positive for Covid and influenza type B. Urinary tract infection with leukocytosis urine culture: gram neg rods Started empirical treatment with ceftriaxone Diabetes uncontrolled high blood sugar initially now well controlled Follow blood sugars Continue Lantus daily and NovoLog with meals adjust as needed Use supplemental insulin and hypoglycemia treatment as needed Tested positive for Covid as well as influenza type B no respiratory symptoms but have generalized malaise and body ache Respiratory isolation elevated pro-calcitonin level - might relate to urinary tract infection - continue ceftriaxone fairly low d-dimer negative cxr Hold dex/rem/plasma for now Hyponatremia Mild we will follow Hypertension Continue metoprolol Diagnosis: Stroke: No - Discharge Data Discharge Date: 06/15/20 Discharge Disposition: Home, Self-Care 01 Condition: Fair - Referral to Home Health Primary Care Physician: Go De Jesus MD - Discharge Diagnosis/Problem(s) (1) COVID-19 SNOMED Code(s): 172421420 ICD Code: U07.1 - COVID-19 Status: Acute Current Visit: Yes (2) IDDM (insulin dependent diabetes mellitus) SNOMED Code(s): 50900509 ICD Code: ETL1711 - Status: Acute Current Visit: Yes (3) Influenza SNOMED Code(s): 3529285 ICD Code: J11.1 - FLU DUE TO UNIDENTIFIED INFLUENZA VIRUS W OTH RESP MANIFEST Status: Acute Current Visit: Yes (4) UTI (urinary tract infection) SNOMED Code(s): 16520037 ICD Code: N39.0 - URINARY TRACT INFECTION, SITE NOT SPECIFIED Status: Acute Current Visit: Yes Qualifiers: Urinary tract infection type: acute cystitis Hematuria presence: without hematuria Qualified Code(s): N30.00 - Acute cystitis without hematuria - Patient Instructions Diet: Heart Healthy Diet Activity: As Tolerated - Discharge Plan *PRESCRIPTION DRUG MONITORING PROGRAM REVIEWED*: No *COPY OF PRESCRIPTION DRUG MONITORING REPORT IN PATIENT MONAE: No Prescriptions/Med Rec: cephALEXin [Keflex] 500 mg PO TID 5 Days #15 cap Home Medications: Home Meds Insulin Aspart [NovoLOG] 38 units SUBCUT TID 02/24/15 [History] Metoprolol Succinate [Toprol XL 50mg] 50 mg PO DAILY 02/24/15 [History] Aspirin [Ecotrin EC] 81 mg PO DAILY 04/30/17 [History] Ezetimibe 10 mg PO DAILY 04/30/17 [History] Insulin Detemir [Levemir Flextouch] 130 units SQ DAILY 04/30/17 [History] Pantoprazole [ProTONIX] 40 mg PO DAILY 04/30/17 [History] DULoxetine HCl [Cymbalta] 60 mg PO DAILY 12/18/18 [History] Pravastatin Sodium [Pravachol] 20 mg PO DAILY 09/01/19 [History] Semaglutide [Ozempic] 1 mg SUBCUT WEEKLY 09/01/19 [History] cephALEXin [Keflex] 500 mg PO TID 5 Days #15 cap 06/15/20 [Rx] Patient Handouts: COVID-19 Frequently Asked Questions, COVID-19, Urinary Tract Infection, Adult, [id number], COVID-19: How to Protect Yourself and Others - CDC, Cephalexin tablets or capsules, Prevent the Spread of COVID-19 if You Are Sick - [facility] Referrals: Go De Jesus MD [Primary Care Provider] - (in 2-3 days ) - Discharge Summary/Plan Comment DC Time >30 min.: No - General Info Date of Service: 06/15/20 Admission Dx/Problem (Free Text: Admission Diagnosis/Problem Admission Diagnosis/Problem UTI (urinary tract infection) Subjective Update: feeling better. stronger Still some diffuse muscle ache. No shortness of breath, no associated cough No abdominal pain. Functional Status: Reports: Tolerating Diet - Review of Systems General: Denies: Fever, Weakness Pulmonary: Denies: Shortness of Breath Cardiovascular: Denies: Chest Pain, Edema Genitourinary: Denies: Dysuria, Burning Neurological: Denies: Confusion - Patient Data Vitals - Most Recent: Last Vital Signs Temp 98.8 F 06/15/20 08:00 Pulse 74 06/15/20 09:00 Resp 18 06/15/20 08:00 BP 136/67 06/15/20 09:00 Pulse Ox 94 L 06/15/20 08:00 Weight - Most Recent: 160 lb I&O - Last 24 hours: Intake & Output 06/14/20 06/15/20 06/15/20 22:59 06:59 14:59 Intake Total 920 240 Balance 920 240 Lab Results - Last 24 hrs: Laboratory Results - last 24 hr 06/14/20 06/14/20 06/14/20 Range/Units 06:10 17:40 21:31 WBC (5.0-10.0) 10^3/uL RBC (4.2-5.4) 10^6/uL Hgb (12.0-16.0) g/dL Hct (37.0-47.0) % MCV (80-100) fL MCH (27.0-34.0) pg MCHC (33.0-35.0) g/dL Plt Count (150-450) 10^3/uL Neut % (Auto) (42.2-75.2) % Lymph % (Auto) (20.5-50.1) % [place] % (Auto) (2-8) % Eos % (Auto) (1.0-3.0) % Baso % (Auto) (0.0-1.0) % D-Dimer, Quantitative (0-400) ng/mL Sodium (136-145) mmol/L Potassium (3.5-5.1) mmol/L Chloride (98-107) mmol/L Carbon Dioxide (21-32) mmol/L Anion Gap (7-13) mEq/L BUN (7-18) mg/dL Creatinine (0.55-1.02) mg/dL Est Cr Clr Drug Dosing mL/min Estimated GFR (MDRD) Glucose (74-99) mg/dL POC Glucose 122 H 153 H (70-105) mg/dl Calcium (8.5-10.1) mg/dL Procalcitonin 0.70 H (<0.10) ng/mL 06/15/20 06/15/20 06/15/20 Range/Units 06:25 06:25 06:25 WBC 7.0 (5.0-10.0) 10^3/uL RBC 3.89 L (4.2-5.4) 10^6/uL Hgb 11.6 L (12.0-16.0) g/dL Hct 34.8 L (37.0-47.0) % MCV 89.5 (80-100) fL MCH 29.8 (27.0-34.0) pg MCHC 33.3 (33.0-35.0) g/dL Plt Count 232 (150-450) 10^3/uL Neut % (Auto) 35.6 L (42.2-75.2) % Lymph % (Auto) 47.3 (20.5-50.1) % [place] % (Auto) 12.8 H (2-8) % Eos % (Auto) 4.0 H (1.0-3.0) % Baso % (Auto) 0.3 (0.0-1.0) % D-Dimer, Quantitative 454 H (0-400) ng/mL Sodium 139 (136-145) mmol/L Potassium 4.4 (3.5-5.1) mmol/L Chloride 103 (98-107) mmol/L Carbon Dioxide 32 (21-32) mmol/L Anion Gap 8.4 (7-13) mEq/L BUN 12 (7-18) mg/dL Creatinine 0.86 (0.55-1.02) mg/dL Est Cr Clr Drug Dosing 57.77 mL/min Estimated GFR (MDRD) > 60 Glucose 125 H (74-99) mg/dL POC Glucose (70-105) mg/dl Calcium 8.6 (8.5-10.1) mg/dL Procalcitonin (<0.10) ng/mL 06/15/20 06/15/20 Range/Units 07:53 12:03 WBC (5.0-10.0) 10^3/uL RBC (4.2-5.4) 10^6/uL Hgb (12.0-16.0) g/dL Hct (37.0-47.0) % MCV (80-100) fL MCH (27.0-34.0) pg MCHC (33.0-35.0) g/dL Plt Count (150-450) 10^3/uL Neut % (Auto) (42.2-75.2) % Lymph % (Auto) (20.5-50.1) % [place] % (Auto) (2-8) % Eos % (Auto) (1.0-3.0) % Baso % (Auto) (0.0-1.0) % D-Dimer, Quantitative (0-400) ng/mL Sodium (136-145) mmol/L Potassium (3.5-5.1) mmol/L Chloride (98-107) mmol/L Carbon Dioxide (21-32) mmol/L Anion Gap (7-13) mEq/L BUN (7-18) mg/dL Creatinine (0.55-1.02) mg/dL Est Cr Clr Drug Dosing mL/min Estimated GFR (MDRD) Glucose (74-99) mg/dL POC Glucose 118 H 117 H (70-105) mg/dl Calcium (8.5-10.1) mg/dL Procalcitonin (<0.10) ng/mL DANIE Results - Last 24 hrs: Microbiology 06/12/20 19:30 Urine Culture - Final Urine, Clean Catch Escherichia Coli 06/12/20 19:15 Aerobic Blood Culture - Preliminary Blood - Arm, Left NO GROWTH AFTER 2 DAYS Anaerobic Blood Culture - Preliminary NO GROWTH AFTER 2 DAYS 06/12/20 19:18 Aerobic Blood Culture - Preliminary Blood - Arm, Right NO GROWTH AFTER 2 DAYS Anaerobic Blood Culture - Preliminary NO GROWTH AFTER 2 DAYS Med Orders - Current: Current Medications Acetaminophen (Tylenol) 650 mg PO Q4H PRN PRN Reason: Fever Last Admin: 06/14/20 21:50 Dose: 650 mg Documented by: Aspirin (Halfprin) 81 mg PO DAILY [facility] Last Admin: 06/15/20 09:01 Dose: 81 mg Documented by: Dextrose/Water (Dextrose 50% In Water) 25 ml IVPUSH Q1H PRN PRN Reason: blood sugar <70 Dextrose/Water (Dextrose 50% In Water) 50 ml IV ASDIRECTED PRN PRN Reason: Hypoglycemia Docusate Sodium (Colace) 100 mg PO BID PRN PRN Reason: Constipation Duloxetine HCl (Cymbalta) 60 mg PO DAILY [facility] Last Admin: 06/15/20 09:01 Dose: 60 mg Documented by: Ezetimibe (Zetia) 10 mg PO DAILY [facility] Last Admin: 06/15/20 09:00 Dose: 10 mg Documented by: Enoxaparin Sodium (Lovenox) 40 mg SUBCUT BID [facility] Last Admin: 06/15/20 09:01 Dose: 40 mg Documented by: Glucagon (Glucagen) 1 mg IM ASDIRECTED PRN PRN Reason: Hypoglycemia Ceftriaxone Sodium 1 gm/ (Sodium Chloride) 50 mls @ 100 mls/hr IV Q24H [facility] Last Admin: 06/15/20 12:04 Dose: 100 mls/hr Documented by: Insulin Glargine (Lantus) 80 unit SUBCUT BEDTIME [facility] Last Admin: 06/14/20 21:39 Dose: 80 units Documented by: Insulin Human Lispro (Humalog) 0 unit SUBCUT QIDACANDBED [facility]; Protocol Last Admin: 06/15/20 12:06 Dose: Not Given Documented by: Insulin Human Lispro (Humalog) 20 unit SUBCUT TIDMEALS [facility] Last Admin: 06/15/20 12:05 Dose: 20 units Documented by: Metoprolol Succinate (Toprol Xl) 50 mg PO DAILY [facility] Last Admin: 06/15/20 09:00 Dose: 50 mg Documented by: Ondansetron HCl (Zofran Odt) 4 mg PO Q6H PRN PRN Reason: nausea, able to take PO Oxycodone HCl (Oxycodone) 5 mg PO Q4H PRN PRN Reason: Pain mod to severe Last Admin: 06/14/20 21:33 Dose: 5 mg Documented by: Pantoprazole Sodium (Protonix) 40 mg PO ACBREAKFAST [facility] Last Admin: 06/15/20 05:27 Dose: 40 mg Documented by: Pravastatin Sodium (Pravachol) 20 mg PO DAILY [facility] Last Admin: 06/15/20 09:00 Dose: 20 mg Documented by: Sodium Chloride (Saline Flush) 10 ml FLUSH ASDIRECTED PRN PRN Reason: Keep Vein Open Zolpidem Tartrate (Ambien) 5 mg PO BEDTIME PRN PRN Reason: Sleep Last Admin: 06/14/20 21:50 Dose: 5 mg Documented by: Discontinued Medications Acetaminophen (Tylenol) 650 mg PO NOW ONE Stop: 06/12/20 18:32 Last Admin: 06/12/20 18:36 Dose: 650 mg Documented by: Dextrose/Water (Dextrose 50% In Water) 50 ml IV ASDIRECTED PRN PRN Reason: Hypoglycemia Dextrose/Water (Dextrose 50% In Water) 50 ml IV ASDIRECTED PRN PRN Reason: Hypoglycemia Enoxaparin Sodium (Lovenox) 40 mg SUBCUT DAILY [facility] Last Admin: 06/14/20 09:02 Dose: 40 mg Documented by: Glucagon (Glucagen) 1 mg IM ASDIRECTED PRN PRN Reason: Hypoglycemia Glucagon (Glucagen) 1 mg IM ASDIRECTED PRN PRN Reason: Hypoglycemia Sodium Chloride (Normal Saline) 1,000 mls @ 999 mls/hr IV .BOLUS ONE Stop: 06/12/20 20:41 Last Admin: 06/12/20 19:48 Dose: 999 mls/hr Documented by: Ceftriaxone Sodium 1 gm/ (Sodium Chloride) 50 mls @ 100 mls/hr IV ONETIME ONE Stop: 06/12/20 21:00 Last Admin: 06/12/20 20:40 Dose: 100 mls/hr Documented by: Potassium Chloride/Sodium Chloride (Normal Saline With 20 Meq Kcl) 1,000 mls @ 100 mls/hr IV ASDIRECTED [facility] Last Admin: 06/13/20 08:30 Dose: 100 mls/hr Documented by: Insulin Glargine (Lantus) 80 unit SUBCUT DAILY [facility] Insulin Glargine (Lantus) 40 unit SUBCUT ONETIME ONE Stop: 06/12/20 22:08 Last Admin: 06/12/20 22:55 Dose: 40 units Documented by: Magnesium Oxide (Magnesium Oxide) 500 mg PO QID [facility] Stop: 06/13/20 21:01 Last Admin: 06/13/20 21:01 Dose: 500 mg Documented by: Ondansetron HCl (Zofran) 4 mg IVPUSH ONETIME ONE Stop: 06/12/20 19:42 Last Admin: 06/12/20 19:49 Dose: 4 mg Documented by: Sodium Phosphate (Neutra-Phos) 250 mg PO QID [facility] Stop: 06/13/20 21:01 Last Admin: 06/13/20 21:00 Dose: 250 mg Documented by: - Exam General: Reports: Alert, Oriented Lungs: Reports: Clear to Auscultation, Normal Respiratory Effort, Rhonchi Cardiovascular: Reports: Regular Rate GI/Abdominal Exam: Normal Bowel Sounds, Soft, Non-Tender Extremities: No Pedal Edema Skin: Reports: Warm
[2020-06-15] MEDS: Acetaminophen 325 MG Tab PO PRN (13:28)
== END 2020-06-15 13:30 | disposition home or self-care (01) | DRG 463 ==
LOC: DL.ED 17:51 → DL.MS 20:51
PROVIDERS: ADMIT Internal Medicine; ATTEND Internal Medicine
PROC: 8E0ZXY6 Isolation (ICD-10-PCS; principal; 2020-06-12)
DX: N30.00 Acute cystitis without hematuria (principal); U07.1 COVID-19; B96.20 Unspecified Escherichia coli [E. coli] as the cause of diseases classified elsewhere; E11.65 Type 2 diabetes mellitus with hyperglycemia; J10.1 Influenza due to other identified influenza virus with other respiratory manifestations; E87.1 Hypo-osmolality and hyponatremia; I10 Essential (primary) hypertension; E78.00 Pure hypercholesterolemia, unspecified; H54.7 Unspecified visual loss; M54.9 Dorsalgia, unspecified; G89.29 Other chronic pain; F17.210 Nicotine dependence, cigarettes, uncomplicated; Z88.8 Allergy status to other drugs, medicaments and biological substances; Z79.4 Long term (current) use of insulin; Z79.82 Long term (current) use of aspirin; Z79.899 Other long term (current) drug therapy; Z98.49 Cataract extraction status, unspecified eye
CPT/HCPCS: 36415; 71045; 80048; 80053; 80076; 81001; 82009; 82150; 82962; 83605; 83690; 83735; 84100; 84145; 85025; 85379; 85610; 87040; 87086; 87088; 87186; 87804; 96374; 99284; 99284-25; A9270-GY; J0696; J1650; J1815-GY; J2405; J3480; J7030; J7050; U0002